=== PATIENT | male | born 1940 | race Caucasian/White ===

== ENCOUNTER 2018-10-20 09:33 | Emergency (ER) | payer MEDICARE, OTHER, SELFPAY ==
[2018-10-20 09:37] VITALS: BP 140/75; PULSE 68; RESP 16; TEMP 36.8; O2SAT 96
--- NOTE | 2018-10-20 09:53 | ED.GENADUL_ITS ---
Discharge Plan Disposition Patient Disposition: HOME Discharge Details Chief Complaint: SutureRem Clinical Impression: Encounter for removal of sutures ED Provider: Den Shepherd Home Meds and New Rx's Prescriptions: Continued tamsulosin 0.4 mg Capsule 0.4 mg PO DAILY RF: 0 esomeprazole magnesium [Nexium] 40 mg Capsule,Delayed Release(Dr/Ec) 40 mg PO DAILY RF: 0 acyclovir 400 mg Tablet 10 mg PO DAILY RF: 0 Discharge Instructions Instructions: Stitches Removal (ED) Additional Instructions: Please contact your primary care physician to arrange follow-up. Return to the ER for any worsening or new concerning symptoms. 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 No signs of infection. #4 sutures removed by nursing prior to my assessment. Usual and customary discharge instructions were provided. HPI General Mode of arrival: ambulatory . Date/Time Provider Initiated Documentation: 10/20/18 09:37 . Limitations to Documentation: no limitations . Information obtained by: patient . HPI Narrative: 78-year-old male here for suture removal. Patient notes he had squamous cell carcinoma excised from his right forearm about 2 weeks ago and sutures were placed for wound closure. He was told to come to the emergency department for suture removal by his patient educator. Wound is been healing well with no signs of infection. Related Data Home Medications Medication Instructions Recorded Confirmed acyclovir 10 mg PO DAILY 10/20/18 10/20/18 esomeprazole magnesium [Nexium] 40 mg PO DAILY 10/20/18 10/20/18 tamsulosin 0.4 mg PO DAILY 10/20/18 10/20/18 Allergies Allergy/AdvReac Type Severity Reaction Status Date / Time No Known Allergies Allergy Unverified 10/20/18 09:40 General Stated Complaint: SutureRem ALIZE: 5 Review of Systems Integumentary/Breasts Reports as per HPI [facility] Medical History Squamous cell carcinoma (Acute) Social History Smoking/Tobacco Use Status: Former Tobacco Use Alcohol Intake: never Drug use: Never Substance use type: does not use Do you feel safe at home: Yes Do you feel safe in your relationship?: Yes Exam Const General: cooperative, healthy appearing, comfortable and no acute distress Skin Lesions: lesion noted (1.5cm healing wound dorsal right forearm with no erythema or swelling) Course Vital Signs Temperature 36.8 C 10/20/18 09:37 Pulse 68 10/20/18 09:37 Respiratory Rate 16 10/20/18 09:37 Blood Pressure 140/75 10/20/18 09:37 Pulse Oximetry 96 10/20/18 09:37 Temperature 36.8 C 10/20/18 09:37 Temperature Source Skin 10/20/18 09:37 Pulse 68 10/20/18 09:37 Respiratory Rate 16 10/20/18 09:37 Respiratory Effort 10/20/18 09:42 Blood Pressure 140/75 10/20/18 09:37 Blood Pressure Position Sitting 10/20/18 09:37 Pulse Oximetry 96 10/20/18 09:37 Oxygen Delivery Method Room Air 10/20/18 09:37 Oxygen Flow Rate 0 10/20/18 09:37 Pain Level 0 10/20/18 09:37
== END 2018-10-20 09:56 | disposition home or self-care (01) ==
PROVIDERS: Emergency Provider Student in an Organized Health Care Education/Training Program
DX: S51.811D Laceration without foreign body of right forearm, subsequent encounter (principal); W45.8XXD Other foreign body or object entering through skin, subsequent encounter; Z48.02 Encounter for removal of sutures